=== PATIENT | male | born 1975 | race Caucasian/White ===

== ENCOUNTER 2017-04-06 23:34 | Emergency (ER) | payer OTHER ==
[~2017-04-06] VITALS: Ht 177.8 cm; Wt 113.0 kg
[~2017-04-06 23:34] MED LIST: AUGMENTIN875 MG PO; HYDROCODON-ACE1 EAC7 PO; NABUMETONE750 MG PO; TYLENOL EXTRA500 MG PO; ULTRAM50 MG PO
[2017-04-07] MEDS ORDERED: MOTRIN600 MG PO (00:56)
[2017-04-07] MEDS ORDERED: PERCOCET 5/31 TABLET PO (00:56)
[2017-04-07] MEDS ORDERED: SKELAXIN800 MG PO (00:56)
[2017-04-07 01:19] VITALS: BP 129/68
== END 2017-04-07 01:28 | disposition home or self-care (01) ==
LOC: EXP 23:34 → EME 23:34 → EXP 04-07 01:28
DX: S39.012A Strain of muscle, fascia and tendon of lower back, initial encounter (principal); V49.40XA Driver injured in collision with unspecified motor vehicles in traffic accident, initial encounter
CPT/HCPCS: 99281; 99284

== ENCOUNTER 2017-05-26 20:24 | Emergency (ER) | payer BC ==
[~2017-05-26] VITALS: Ht 177.8 cm; Wt 112.4 kg
[~2017-05-26 20:24] MED LIST changes: +MOTRIN600 MG PO; +PERCOCET 5/31 TABLET PO; +SKELAXIN800 MG PO
[2017-05-26] MEDS ORDERED: PERCOCET 5/31 TABLET PO (23:43)
[2017-05-27 00:15] VITALS: BP 143/95
== END 2017-05-27 00:16 | disposition home or self-care (01) ==
LOC: EME 20:24
DX: S52.502A Unspecified fracture of the lower end of left radius, initial encounter for closed fracture (principal); S52.602A Unspecified fracture of lower end of left ulna, initial encounter for closed fracture; M54.5 Low back pain; W23.0XXA Caught, crushed, jammed, or pinched between moving objects, initial encounter; F17.200 Nicotine dependence, unspecified, uncomplicated
CPT/HCPCS: 72131; 73090; 73100; 73110; 73130; 99281; 99285